=== PATIENT | female | born 1950 | race Caucasian/White ===

== ENCOUNTER 2017-11-19 09:48 | Outpatient (CLI) | payer MEDICARE, BC ==
--- NOTE | 2017-11-19 12:54 | CT ---
ABDOMEN CT WITH AND WITHOUT CONTRAST PELVIC CT WITH AND WITHOUT CONTRAST: Date: 11/19/17 HISTORY: Abdominal pain. Lower abdominal discomfort. Microhematuria. COMPARISON: None. ' TECHNIQUE: Abdomen and pelvic CT are performed with IV contrast. Enteric contrast was not administered. Coronal reformatted images are submitted for interpretation. FINDINGS: ABDOMEN CT: Dependent atelectatic changes. Heart size is normal. No pericardial effusion. The descending thoracic aorta and abdominal aorta have an overall normal caliber. No periaortic fat stranding. Focal promine nce of the infrarenal abdominal aorta without aneurysmal dilatation. AP diameter is 2.1 cm. Mediolate ral diameter is 1.8 cm. Symmetric attenuation of the psoas muscles. No gastrohepatic, retrocrural, or periportal lymphadenopathy. Gallbladder is unremarkable. Intra and extrahepatic portal vein is patent. Liver, spleen, pancreas, and adrenal glands have appropriate attenuation and enhancement. No mesenteric mass, lymphadenopathy, free air, or free fluid. Limited evaluation of the alimentary canal due to lack of oral contrast. Gastric mucosa, duodenum, an d multiple normal caliber small bowel loops are noted. Ileocecal junction normal. Normal caliber appe ndix. Scattered fecal material in a nondistended, nondilated colon. Diverticulosis, without evidence of diverticulitis. Bilaterally, no hydronephrosis, nephrolithiasis, or perinephric fat stranding. Bilaterally, no hydrou reter, periureteral fat stranding, or ureterolithiasis. Symmetric enhancement of the kidneys. Multipl e subcentimeter hypodensities in the left and right renal cortex. Lesions are too small to characteri ze, but are statistically favored to be cysts. There is symmetric excretion into the intra and extrar enal collecting system. No filling defects. PELVIC CT: Contrast is in the dependent portion of the urinary bladder. No pelvic mass, lymphadenopathy, free ai r, or free fluid. No lytic or blastic lesions in the osseous structures. IMPRESSION: 1. No evidence of nephrolithiasis or obstructive uropathy. 2. Multiple subcentimeter hypodensities involving the kidneys, too small to characterize, but statis tically favored to be cysts. 3. Sigmoid colon diverticulosis, without evidence of diverticulitis. POS: ERICKSON
[2017-11-19] MEDS ORDERED: Iopamidol 370 76% 100 ML VIAL ONE (13:23)
== END 2017-11-19 09:49 | disposition home or self-care (01) ==
LOC: CT 09:48
PROVIDERS: ATTEND Urology
DX: R31.21 Asymptomatic microscopic hematuria (principal); N28.89 Other specified disorders of kidney and ureter; K57.30 Diverticulosis of large intestine without perforation or abscess without bleeding
CPT/HCPCS: 74178

== ENCOUNTER 2018-08-06 13:04 | Outpatient (CLI) | payer MEDICARE, BC ==
--- NOTE | 2018-08-06 16:15 | MMO ---
BILATERAL MAMMOGRAMS: DATE: 08/06/18 HISTORY: Screening mammography. COMPARISON: Multiple exams back to 03/16/12. FINDINGS: Heterogeneously dense fibroglandular tissue. No dominant mass or suspicious calcifications. The study was evaluated with the assistance of computer-aided detection. IMPRESSION: BIRADS 1: Negative Suggest routine follow-up. POS: GEORGE
== END 2018-08-06 13:05 | disposition home or self-care (01) ==
LOC: SCSMAMMO 13:04
PROVIDERS: ATTEND Family Medicine
DX: Z12.31 Encounter for screening mammogram for malignant neoplasm of breast (principal)
CPT/HCPCS: 77067

== ENCOUNTER 2018-10-27 09:25 | Outpatient (CLI) | payer MEDICARE, BC ==
--- NOTE | 2018-10-27 11:53 | CT ---
CT TEMPORAL BONES NONCONTRAST: 10/27/2018 HISTORY: A 67-year-old female with H73.20, myringitis. FINDINGS: There is polypoid mucosal thickening at the inferior aspects of the bilateral maxillary sinuses, plus fluid levels. Adenoids are hyperplastic. The left tympanic membrane is thickened, especially inferiorly, where it is severely thickened. Ther e is a thin layer of material between the thickened tympanic membrane and the incus. This affects a tiny portion of the Prussak space, but the rest of the left Prussak space is clear. The rest of the epitympanum is clear. The mesotympanum and hypotympanum are clear. The left mastoid antrum is clear. There is opacification of some of the inferior left mastoid air cells. Most of the left mastoid ai r cells are clear. Contralateral right middle ear cavity, right mastoid antrum, and all or almost all of the right masto id air cells are clear. Bilateral ossicles and scuta are intact, with no evidence of erosion or displacement. There is no morphologic abnormality identified involving the bilateral internal auditory canals, coch leae, vestibules, vestibular aqueducts, semicircular canals, facial nerve canals, carotid canals, tem poromandibular joints, and jugular bulbs. IMPRESSION: 1. Thickened left tympanic membrane. 2. Small left mastoid effusion. 3. No other significant abnormality of temporal bone structures identified. 4. Mucosal disease in the bilateral maxillary sinuses. POS: GEORGE
== END 2018-10-27 09:26 | disposition home or self-care (01) ==
LOC: SCSCT 09:25
PROVIDERS: ATTEND Otolaryngology Plastic Surgery within the Head & Neck
DX: H73 Other disorders of tympanic membrane (principal); H73.891 Other specified disorders of tympanic membrane, right ear; H74.8X2 Other specified disorders of left middle ear and mastoid; J32.0 Chronic maxillary sinusitis
CPT/HCPCS: 70480

== ENCOUNTER 2021-07-09 11:36 | Outpatient (CLI) | payer MEDICARE, BC | END 2021-07-09 11:37 | disposition home or self-care (01) | LOC: BICMAMMO 11:36 | PROVIDERS: ATTEND Family Medicine | DX: Z12.31 Encounter for screening mammogram for malignant neoplasm of breast (principal); Z80.3 Family history of malignant neoplasm of breast | CPT/HCPCS: 77063; 77067 ==

== ENCOUNTER 2022-11-10 09:30 | Outpatient (CLI) | payer MEDICARE, BC | END 2022-11-10 09:31 | disposition home or self-care (01) | LOC: BICMAMMO 09:30 | PROVIDERS: ATTEND Family Medicine | DX: Z12.31 Encounter for screening mammogram for malignant neoplasm of breast (principal); N95.9 Unspecified menopausal and perimenopausal disorder; M85.852 Other specified disorders of bone density and structure, left thigh; M85.851 Other specified disorders of bone density and structure, right thigh; Z80.3 Family history of malignant neoplasm of breast | CPT/HCPCS: 77063; 77067; 77080 ==

== ENCOUNTER 2023-10-15 13:35 | Outpatient (CLI) | payer MEDICARE | END 2023-10-15 13:36 | disposition home or self-care (01) | LOC: SCSRAD 13:35 | PROVIDERS: ATTEND Physician Assistant | DX: M25.552 Pain in left hip (principal); M16.12 Unilateral primary osteoarthritis, left hip ==

== ENCOUNTER 2024-02-01 15:04 | Outpatient (CLI) | payer MEDICARE | END 2024-02-01 15:05 | disposition home or self-care (01) | LOC: SCSRAD 15:04 | PROVIDERS: ATTEND Physician Assistant | DX: R06.00 Dyspnea, unspecified (principal) | CPT/HCPCS: 71046 ==